=== PATIENT | female | born 1945 | race Caucasian/White ===

== ENCOUNTER → 2024-11-10 12:49 | Outpatient (REF) | payer MEDICARE, OTHER, SELFPAY | LOC: HWRAD 12:49 | PROVIDERS: ATTENDING PHYSICIAN Urology; FAMILY PHYSICIAN Internal Medicine | DX: N36.8 Other specified disorders of urethra (principal); R31.29 Other microscopic hematuria; M62.89 Other specified disorders of muscle; N95.2 Postmenopausal atrophic vaginitis; N20.0 Calculus of kidney | CPT/HCPCS: 76770 ==